=== PATIENT | female | born 1995 | race African-American/Black ===

== ENCOUNTER 2018-06-17 09:59 | Emergency (ER) | payer OTHER | END 2018-06-17 11:33 | disposition home or self-care (01) | LOC: ERS 09:59 | DX: O99.511 Diseases of the respiratory system complicating pregnancy, first trimester (principal); J40 Bronchitis, not specified as acute or chronic; Z3A.11 11 weeks gestation of pregnancy | CPT/HCPCS: 99282 ==

== ENCOUNTER 2018-07-19 13:29 | Emergency (ER) | payer OTHER | END 2018-07-19 15:30 | disposition home or self-care (01) | LOC: ERS 13:29 | DX: O99.611 Diseases of the digestive system complicating pregnancy, first trimester (principal); K92.9 Disease of digestive system, unspecified; K03.81 Cracked tooth | CPT/HCPCS: 99282 ==

== ENCOUNTER 2018-09-07 07:49 | Outpatient (CLI) | payer OTHER ==
--- NOTE | 2018-09-07 09:49 | ULT ---
OB ULTRASOUND: HISTORY: Anatomy and dates. FINDINGS: A single live intrauterine gestation is seen with measurements corresponding to an estimated gestatio nal age of 23 weeks 2 days and an DALE of 01/02/2019. The estimated weight measures 579 g or 1 lb 4 oz. measurements are as follows: BPD: 5.44 cm (22 weeks 4 days). HC: 21.27 cm (23 weeks 3 days). AC: 18.88 cm (23 weeks 5 days). FL: 3.99 cm (23 weeks 0 days). heart rate measures 146 beats per minute. The placenta is anteriorly located without evidence of placenta previa. BETHANY measures 18.02 cm. A three-vessel cord, cord insertion, kidneys, bladder, stomach, four-chambered heart, lateral v entricles, cerebellum, spine, and upper and lower extremities are visualized, without definite anomalies. The lips/nose are not seen. IMPRESSION: Single live intrauterine of 23 weeks' 2 days' estimated gestational age and an estimated da te of delivery of 01/02/2019. POS: [facility]
== END 2018-09-07 07:50 | disposition home or self-care (01) ==
LOC: BICULT 07:49
PROVIDERS: ATTEND Family Medicine
DX: Z34.92 Encounter for supervision of normal pregnancy, unspecified, second trimester (principal); Z3A.23 23 weeks gestation of pregnancy
CPT/HCPCS: 76805

== ENCOUNTER 2019-01-02 18:46 | Inpatient (IN) | payer OTHER ==
[~2019-01-02 18:46] MED LIST: PHENYLEPHRINE-NS 100 MCG/ML 10 ML SYRINGE ONE
[2019-01-02 19:20] VITALS: BMI 46.9
[2019-01-02 19:42] LABS: Amnisure Internal Control QC ACCEPTABLE (ACCEPTABLE); Amnisure Test RUPTURE DETECTED (No Rupture)
[2019-01-02] MEDS ORDERED: hydrALAZINE 20 MG/ML VIAL SLOW IVP PRN (19:47)
[2019-01-02] MEDS ORDERED: Promethazine HCl 25 MG/ML VIAL IM PRN ×2 (19:47→21:37)
[2019-01-02] MEDS ORDERED: Ondansetron PF 4 MG/2 ML Vial IVP PRN ×2 (19:47→21:37)
[2019-01-02] MEDS ORDERED: Bicitra 30 ML UDCUP ONE (19:58)
[2019-01-02] MEDS ORDERED: Bicitra 30 ML UDCUP PO SCH (20:00)
[2019-01-02] MEDS ORDERED: CEFAZOLIN 2 GM in Premix Bag 1 BAG IVPB SCH (20:00)
[2019-01-02] MEDS ORDERED: Azithromycin 500 MG in Sodium Chloride 0.9% 250 ML 250 ML IVPB SCH (20:00)
[2019-01-02] MEDS ORDERED: Lactated Ringer's 1,000 ML IV SCH ×2 (20:00→21:00)
[2019-01-02] MEDS ORDERED: MORPHINE 5 MG/10 ML PF VIAL ONE (20:01)
[2019-01-02] MEDS ORDERED: Oxytocin 10 UNITS/ML VIAL ONE ×2 (20:01→21:15)
[2019-01-02] MEDS ORDERED: ePHEDrine/0.9% NaCl/PF SYRINGE 50 mg/10 ml ONE (20:01)
[2019-01-02 20:29] LABS: Hemoglobin 12.7 g/dL (12.0-16.0); Mean Corpuscular HGB CONC 33.2 g/dL (32.0-36.0); Mean Corpuscular Hemoglobin 28.2 pg (27.0-31.0); Mean Corpuscular Volume 84.9 fL (78.0-98.0); Mean Platelet Volume 10.3 fL (7.4-10.4); Platelet Count 171 thou/uL (130-400); RBC Distribution Width 14.4 % (11.5-14.5); Red Blood Cell (RBC) Count 4.53 mill/uL (4.20-5.40); White Blood Cell (WBC) Count 13.4 thou/uL (4.8-10.8)
[2019-01-02] MEDS ORDERED: Phenylephrine HCL 10 MG/ML VIAL ONE (21:04)
[2019-01-02 21:05] LABS: Syphilis Antibody Nonreactive (Nonreactive); Syphilis Antibody Index 0.04 S/CO (<1.00 Non-Reactive)
--- NOTE | 2019-01-02 21:08 | HP ---
HISTORY OF PRESENT ILLNESS: This is a 23-year-old white black female, G2, P1, at 40 weeks and 1 day, EDC of 01/01, here with rupture of membranes. Patient's course has been uncomplicated. Her cervix has been unchanged, thick, closed, high. Her cervix remains the same. However, at 1700 today, she did have spontaneous rupture of membranes that was confirmed in L and D. She is having irregular contractions. The patient is in agreement to proceed with a repeat low transverse section. PAST MEDICAL HISTORY: Unremarkable. PAST SURGERY: Primary section for non-reassuring heart tracing. FAMILY HISTORY: Unremarkable. SOCIAL HISTORY: Unremarkable. She lives with her son. She is single. She is unemployed. REVIEW OF SYSTEMS: As above. PHYSICAL EXAMINATION: VITAL SIGNS: Stable. Afebrile. HEENT: Clear. HEART: Regular rate and rhythm. LUNGS: Clear. ABDOMEN: Soft, gravid. Cervix ruptured, thick, closed, high. heart tones reactive, category I. LABORATORY DATA: GBS positive. HIV negative. 1 hour GTT negative. TSH normal. HIV negative. Hepatitis B negative. RPR nonreactive. Rubella immune. B positive blood type. ASSESSMENT: 1. Term . 2. Spontaneous rupture of membrane. Cervix is thick, closed, high. 3. Prior section. PLAN: 1. Routine L and D orders. 2. Routine Anesthesia orders. 3. Plan to proceed with a repeat low transverse section. Job ID: [id number]
[2019-01-02] MEDS ORDERED: Lidocaine 1% PF 5 ML VIAL ONE (21:26)
[2019-01-02] MEDS ORDERED: diphenhydrAMINE 50 MG/ML VIAL IVP PRN (21:37)
[2019-01-02] MEDS ORDERED: Ondansetron HCl/PF 4 MG/2 ML Vial IVP PRN (21:37)
[2019-01-02] MEDS ORDERED: Promethazine HCl 25 MG SUPP PR PRN (21:37)
[2019-01-02] MEDS ORDERED: HYDROmorphone 2 MG/ML VIAL SLOW IVP PRN (21:37)
[2019-01-02] MEDS ORDERED: Naloxone HCl 0.4 mg/ml Vial IVP PRN ×2 (21:37)
[2019-01-02] MEDS ORDERED: Naloxone HCl 0.4 mg/ml Vial IV PRN (21:37)
[2019-01-02] MEDS ORDERED: Meperidine HCl/PF 25 MG/ML VIAL SLOW IVP PRN (21:37)
[2019-01-02] MEDS ORDERED: Ketorolac Tromethamine 30 MG/ML VIAL IVP PRN (21:37)
[2019-01-02] MEDS ORDERED: L&D-Morphine 4 MG/ML VIAL SLOW IVP PRN (21:37)
[2019-01-02] MEDS ORDERED: Ketorolac Tromethamine 30 MG/ML VIAL IVP SCH (21:45)
[2019-01-02] MEDS ORDERED: Communication Order-Pharmacy FS SCH (21:45)
[2019-01-02 22:27] LABS: HBSAg Index 0.24 S/CO (0-0.99); Hep B Surf Ag Non-Reactive S/CO (NonReactive)
--- NOTE | 2019-01-03 00:21 | OP ---
DATE OF PROCEDURE: 01/02/2019 PREOPERATIVE DIAGNOSES: 1. Term . 2. Spontaneous rupture of membranes. POSTOPERATIVE DIAGNOSES: 1. Term . 2. Spontaneous rupture of membranes. PROCEDURE: Repeat low transverse section. INTERNAL CONSULTANT: Ag White MD ANESTHESIA: Spinal. DESCRIPTION OF PROCEDURE: This 23-year-old black female, G2, P1, taken to the operating room. Placed in supine position. Abdomen prepped and draped sterilely. A Pfannenstiel incision was made over the previous incision. Subcu dissected down the fascia, the fascia was opened without incident. Peritoneum was opened by blunt dissection. Bladder flap was dissected inferiorly. Low-transverse uterine incision was made. Fluid was noted to be clear. Delivered the baby from the vertex position. Delivered baby without difficulty. Baby did breathe and cry vigorously upon delivery. Cord was clamped and cut. [facility] team was present. Delivered the placenta manually intact. Cervix was dilated. Uterus was closed in 1 layer of 1 Monocryl. Abdomen was evacuated of all clots. The fascia was closed with 0 Vicryl. The peritoneum was closed with 2-0 chromic. Hemostasis was adequate. The skin was closed with altagracia. Estimated blood loss was 400 mL. Mother and baby did very well. Job ID: [id number]
[2019-01-03] MEDS ORDERED: Lanolin Ointment 7 GM TUBE TOP PRN (00:54)
[2019-01-03] MEDS ORDERED: Methylergonovine 0.2 MG/ML VIAL IM PRN (00:54)
[2019-01-03] MEDS ORDERED: NS / Oxytocin 40 units/1000ml 1,000 ML IV SCH (00:54)
[2019-01-03] MEDS ORDERED: Ondansetron PF 4 MG/2 ML Vial IVP PRN (00:54)
[2019-01-03] MEDS ORDERED: diphenhydrAMINE 25 MG CAP PO PRN (00:54)
[2019-01-03] MEDS ORDERED: Misoprostol 200 MCG TAB PR PRN (00:54)
[2019-01-03] MEDS ORDERED: hydrALAZINE 20 MG/ML VIAL SLOW IVP PRN (00:54)
[2019-01-03] MEDS ORDERED: Acetaminophen 325 MG TAB PO PRN (00:54)
[2019-01-03 06:00] LABS: Hemoglobin 10.9 g/dL (12.0-16.0); Mean Corpuscular HGB CONC 32.1 g/dL (32.0-36.0); Mean Corpuscular Hemoglobin 26.8 pg (27.0-31.0); Mean Corpuscular Volume 83.6 fL (78.0-98.0); Mean Platelet Volume 10.2 fL (7.4-10.4); Platelet Count 143 thou/uL (130-400); RBC Distribution Width 14.2 % (11.5-14.5); Red Blood Cell (RBC) Count 4.08 mill/uL (4.20-5.40); White Blood Cell (WBC) Count 16.7 thou/uL (4.8-10.8)
[2019-01-03] MEDS ORDERED: Adacel (T-DAP) 0.5 ML SYRINGE IM ONE (09:00)
--- NOTE | 2019-01-03 09:06 | HP ---
HISTORY OF PRESENT ILLNESS: This is a 23-year-old black female, G2, P1, at 40 weeks gestation, EDC of 01/01/2019, being admitted for an elective repeat section. The patient has a history of a prior section for non-reassuring heart tracing. She dilated to 3 cm on her last admission. No complications. PAST MEDICAL HISTORY: Unremarkable. ALLERGIES: NONE. PAST SURGERIES: on 10/31/2014. FAMILY HISTORY: Positive for bone cancer. SOCIAL HISTORY: The patient is a nonsmoker. Lives with her son. She is single. REVIEW OF SYSTEMS: As above. PHYSICAL EXAMINATION: VITAL SIGNS: Stable, afebrile. Blood pressure 130/86. GENERAL: No acute distress. HEENT: Clear. HEART: Regular rate and rhythm. LUNGS: Clear. ABDOMEN: Gravid. EXTREMITIES: With no edema. CERVICAL: Closed and high vertex presentation. LABORATORY DATA: GBS positive. HIV negative. 1 hour GTT negative. Thyroid normal. HIV negative. Hepatitis B negative. RPR negative. Rubella immune. B positive blood type, hepatitis B negative. ASSESSMENT: 1. Term . 2. History of prior section. 3. Obesity. 4. Group beta strep positive. PLAN: 1. Routine L and D orders. 2. Routine anesthesia preoperative. 3. N.p.o. after midnight. 4. Plan for repeat low-transverse section. Job ID: [id number]
[2019-01-03] MEDS: Ferrous Sulfate 325 MG TAB PO SCH ×2 (11:23→21:53)
[2019-01-03] MEDS: HYDROcodone/Acetaminophen 5/325 mg Tablet PO PRN ×2 (11:56→16:14)
[2019-01-03] MEDS: Prenatal Vitamin 1 TAB PO SCH (11:56)
[2019-01-03] MEDS: Ibuprofen 800 MG TAB PO PRN ×2 (11:56→21:11)
[2019-01-03] MEDS: Docusate 100 MG CAP PO SCH (21:10)
[2019-01-03] MEDS: HYDROcodone/Acetaminophen 7.5/325 mg Tablet PO PRN (21:10)
[2019-01-04] MEDS: Ibuprofen 800 MG TAB PO PRN ×3 (05:23→22:55)
[2019-01-04] MEDS: Ferrous Sulfate 325 MG TAB PO SCH ×2 (08:43→17:49)
[2019-01-04] MEDS: Prenatal Vitamin 1 TAB PO SCH (08:44)
[2019-01-04] MEDS: Docusate 100 MG CAP PO SCH ×2 (08:44→19:29)
[2019-01-04] MEDS: HYDROcodone/Acetaminophen 5/325 mg Tablet PO PRN (12:46)
[2019-01-04] MEDS: HYDROcodone/Acetaminophen 7.5/325 mg Tablet PO PRN (19:28)
[2019-01-05] MEDS: Ibuprofen 800 MG TAB PO PRN (06:40)
[2019-01-05] MEDS: Ferrous Sulfate 325 MG TAB PO SCH (07:29)
[2019-01-05] MEDS: HYDROcodone/Acetaminophen 7.5/325 mg Tablet PO PRN (07:55)
[2019-01-05 08:31] VITALS: BP 115/58; TEMP 98.4
[2019-01-05] MEDS: Docusate 100 MG CAP PO SCH (09:02)
[2019-01-05] MEDS: Prenatal Vitamin 1 TAB PO SCH (09:02)
== END 2019-01-05 11:05 | disposition home or self-care (01) | DRG 788 ==
LOC: L&D/OP 18:46 → L&D 19:20 → 3SW 01-03 00:55
PROVIDERS: ADMIT Family Medicine; ATTEND Family Medicine
PROC: 10D00Z1 Extraction of Products of Conception, Low, Open Approach (ICD-10-PCS; principal; 2019-01-02)
DX: O34.211 Maternal care for low transverse scar from previous cesarean delivery (principal); O99.214 Obesity complicating childbirth; E66.9 Obesity, unspecified; Z3A.40 40 weeks gestation of pregnancy; Z37.0 Single live birth
CPT/HCPCS: 36415; 51702; 84112; 85027; 86780; 86850; 86900; 86901; 87340; 99285; J0456; J0690; J2001; J2274; J2370; J2590; J7050

== ENCOUNTER 2019-01-12 17:00 | Emergency (ER) | payer OTHER ==
[2019-01-12] MEDS ORDERED: Ondansetron ODT 4 MG TAB ONE (18:46)
[2019-01-12] MEDS ORDERED: Morphine 4 MG/ML VIAL ONE (18:46)
== END 2019-01-12 19:14 | disposition home or self-care (01) ==
LOC: ERS 17:00
DX: G89.18 Other acute postprocedural pain (principal); R10.30 Lower abdominal pain, unspecified; Z79.1 Long term (current) use of non-steroidal anti-inflammatories (NSAID)
CPT/HCPCS: 96372; 99283; J2270; Q0162